=== PATIENT | female | born 1995 | race Caucasian/White ===

== ENCOUNTER 2020-09-02 13:13 | Inpatient (IN) ==
[2020-09-02] MEDS ORDERED: ceFAZolin 3,000 MG in SYRINGE 1 EACH IV ONE (13:22)
[2020-09-02] MEDS ORDERED: FAMOTIDINE 20 MG/2 ML VIAL IV ONE (13:22)
[2020-09-02] MEDS ORDERED: CITRIC ACID/SODIUM CITRATE 30 ML UDCUP PO ONE (13:22)
[2020-09-02] MEDS ORDERED: LACTATED RINGERS 1,000 ML IV SCH ×2 (13:30→18:00)
[2020-09-02 13:48] LABS: Basophils # 0.1 10*3/uL (0.0-0.2); Basophils % 0.7 % (0.0-0.8); Eosinophils # 0.1 10*3/uL (0.0-0.87); Eosinophils % 0.6 % (0.00-10.9); Hematocrit 38.6 VOL% (35.7-47.0); Immature Granulocytes % 0.4 %; Immature Granulocytes Absolute 0.05 #; Lymphocytes # 2.6 10*3/uL (1.4-4.0); Lymphocytes % 21.5 % (21.3-54.2); Mean Corpuscular HGB Conc 33.7 GM/DL (32-36); Mean Corpuscular Volume 83.7 FL (87-102); Mean Platelet Volume 10.2 FL (9.6-12.0); Neutrophils % 71.8 % (38.7-73.9); Platelet Count 317 T/CUMM (130-400); Red Blood Count 4.61 MC/CUMM (3.8-5.5); Red Cell Distribution Width 12.9 % (9.3-17.3); White Blood Count 12.2 T/CUMM (4-12)
[2020-09-02] MEDS ORDERED: NIFEdipine 10 MG CAPSULE PO ONE ×2 (14:03→20:17)
[2020-09-02 14:08] LABS: Alanine Aminotransferase 91 U/L (13-56); Alkaline Phosphatase 288 U/L (45-117); Aspartate Amino Transferase 54 U/L (0-37); Bilirubin,Total < 0.39 MG/DL (0.2-1.0); Blood Urea Nitrogen 13 MG/DL (7-18); Calcium 9.3 MG/DL (8.5-10.1); Carbon Dioxide 22 MMOL/L (21-32); Estimated Glom Filtration Rate 113 ML/MIN; Glucose 125 MG/DL (74-106); Osmolality,Calculated 262.7 MOS/KG (273-304); Potassium 4.1 MMOL/L (3.5-5.1); Sodium 131 MMOL/L (136-145); Total Protein 7.4 G/DL (5.0-7.5)
[2020-09-02] MEDS ORDERED: METOCLOPRAMIDE 10 MG/2 ML VIAL IV ONE (14:51)
[2020-09-02] MEDS ORDERED: MORPHINE 10 MG/10 ML VIAL ONE (14:59)
[2020-09-02] MEDS ORDERED: TRANEXAMIC ACID 1,000 MG/10 ML VIAL ONE (15:00)
[2020-09-02] MEDS ORDERED: miSOPROStoL 200 MCG TABLET ONE (15:00)
[2020-09-02] MEDS ORDERED: METHYLERGONOVINE 0.2 MG/1 ML AMP ONE (15:00)
[2020-09-02] MEDS ORDERED: CARBOPROST TROMETHAMINE 250 MCG/ML AMP IM ONE (15:00)
[2020-09-02] MEDS ORDERED: OXYTOCIN 10 UNIT/ML VIAL IM ONE (15:06)
[2020-09-02] MEDS ORDERED: OXYTOCIN/LR 30 UNIT/1,000 ML BAG IV ONE (15:06)
[2020-09-02] MEDS ORDERED: ALBUMIN 5% 12.5 GM/250 ML VIAL IV ONE (15:28)
[2020-09-02] MEDS ORDERED: BUPIVACAINE SPINAL 0.75% 2 ML AMP SPINAL ONE (15:57)
[2020-09-02] MEDS ORDERED: MIDAZOLAM 2 MG/2 ML VIAL ONE (15:57)
[2020-09-02] MEDS ORDERED: ONDANSETRON 4 MG/2 ML VIAL ONE (16:18)
[2020-09-02] MEDS ORDERED: KETOROLAC 30 MG/1 ML VIAL ONE (16:36)
[2020-09-02] MEDS ORDERED: FUROSEMIDE 20 MG/2 ML VIAL ONE (16:40)
[2020-09-02 16:46] LABS: Cord Arterial Blood HCO3 19.6 MMOL/L
[2020-09-02 16:49] LABS: Cord Venous Blood PCO2 58.6 MMHG; Cord Venous Blood PO2 24.9
[2020-09-02] MEDS ORDERED: FUROSEMIDE 20 MG/2 ML VIAL IV ONE (17:13)
[2020-09-02] MEDS ORDERED: FUROSEMIDE 40 MG/4 ML VIAL ONE (17:27)
[2020-09-02] MEDS ORDERED: SIMETHICONE CHEW 80 MG TABLET PO PRN (17:35)
[2020-09-02] MEDS ORDERED: DEXTROSE 50% 25 GM/50 ML VIAL IV PRN (17:35)
[2020-09-02] MEDS ORDERED: GLUCAGON 1 MG VIAL IM PRN (17:35)
[2020-09-02] MEDS ORDERED: ACETAMINOPHEN 325 MG TABLET PO PRN (17:35)
[2020-09-02] MEDS ORDERED: ONDANSETRON 4 MG/2 ML VIAL IV PRN (17:35)
[2020-09-02] MEDS ORDERED: OXYTOCIN/LR 20 UNIT/1,000 ML BAG IV ONE (17:35)
[2020-09-02] MEDS ORDERED: RHO(D) IMMUNE GLOBULIN 300 MCG SYRINGE IM ONE (17:35)
[2020-09-02 18:13] LABS: Bilirubin,Urine Negative (Negative); Blood, Urine Negative (Negative); Glucose,Urine (UA) Negative (Negative); Ketones,Urine Negative (Negative); Nitrite,Urine Negative (Negative); Protein,Urine Negative; RBC,Urine 1 /HPF (0-4); Urine Appearance CLEAR (Clear); Urine Color Straw (Yellow); Urine Specific Gravity 1.005 (1.001-1.035); Urine Urobilinogen < 2.0 EU/DL (0.2-1.0)
[2020-09-02] MEDS ORDERED: diphenhydrAMINE CAP 25 MG CAPSULE PO PRN (18:55)
[2020-09-02] MEDS: diphenhydrAMINE 50 MG/1 ML VIAL IV PRN (19:14)
[2020-09-02] MEDS ORDERED: MEPERIDINE 50 MG/1 ML VIAL IV PRN (20:57)
[2020-09-03] MEDS: diphenhydrAMINE 50 MG/1 ML VIAL IV PRN ×2 (00:03→08:14)
[2020-09-03] MEDS: FUROSEMIDE 40 MG/4 ML VIAL IV SCH ×3 (00:19→08:15)
[2020-09-03] MEDS: ceFAZolin 1,000 MG in SYRINGE 1 EACH IV SCH ×2 (00:19→08:13)
[2020-09-03] MEDS: DOCUSATE SODIUM 100 MG CAPSULE PO SCH ×3 (00:20→20:38)
[2020-09-03] MEDS: NIFEdipine 10 MG CAPSULE PO SCH ×4 (00:32→18:03)
[2020-09-03] MEDS: IBUPROFEN 800 MG TABLET PO PRN ×2 (02:54→08:14)
[2020-09-03] MEDS: MULTIVITAMIN (PRENATAL) TABLET PO SCH (08:15)
[2020-09-03 08:29] LABS: Basophils # 0.1 10*3/uL (0.0-0.2); Basophils % 0.5 % (0.0-0.8); Eosinophils # 0.1 10*3/uL (0.0-0.87); Eosinophils % 0.5 % (0.00-10.9); Hematocrit 33.2 VOL% (35.7-47.0); Hemoglobin 11.2 GM/DL (12.0-16.0); Immature Granulocytes % 0.5 %; Immature Granulocytes Absolute 0.07 #; Lymphocytes # 3.4 10*3/uL (1.4-4.0); Lymphocytes % 22.8 % (21.3-54.2); Mean Corpuscular HGB Conc 33.7 GM/DL (32-36); Mean Corpuscular Volume 85.6 FL (87-102); Mean Platelet Volume 10.4 FL (9.6-12.0); Monocytes % 7.8 % (1.7-12.7); Neutrophils % 67.9 % (38.7-73.9); Platelet Count 292 T/CUMM (130-400); Red Blood Count 3.88 MC/CUMM (3.8-5.5); Red Cell Distribution Width 13.2 % (9.3-17.3); White Blood Count 15.1 T/CUMM (4-12)
[2020-09-03] MEDS: LABETALOL 200 MG TABLET PO SCH ×2 (14:32→20:38)
[2020-09-03] MEDS ORDERED: LABETALOL 20 MG/4 ML SYRINGE IV ONE (19:09)
[2020-09-04] MEDS: NIFEdipine 10 MG CAPSULE PO SCH ×4 (03:27→18:13)
[2020-09-04] MEDS: DOCUSATE SODIUM 100 MG CAPSULE PO SCH ×2 (08:34→22:24)
[2020-09-04] MEDS: LABETALOL 200 MG TABLET PO SCH ×2 (08:34→22:24)
[2020-09-04] MEDS: MULTIVITAMIN (PRENATAL) TABLET PO SCH (08:35)
[2020-09-04] MEDS: IBUPROFEN 800 MG TABLET PO PRN (14:59)
[2020-09-04] MEDS ORDERED: IBUPROFEN 800 MG TABLET PO PRN (18:29)
[2020-09-04] MEDS: MAGNESIUM HYDROXIDE SUSP 30 ML UDCUP PO PRN (22:24)
[2020-09-05] MEDS: NIFEdipine 10 MG CAPSULE PO SCH ×3 (00:28→12:05)
[2020-09-05] MEDS: MULTIVITAMIN (PRENATAL) TABLET PO SCH (08:51)
[2020-09-05] MEDS: DOCUSATE SODIUM 100 MG CAPSULE PO SCH (08:51)
[2020-09-05] MEDS: LABETALOL 200 MG TABLET PO SCH (08:51)
[2020-09-05] MEDS: MAGNESIUM HYDROXIDE SUSP 30 ML UDCUP PO PRN (09:18)
[2020-09-05] MEDS ORDERED: FUROSEMIDE 20 MG TABLET PO ONE (11:35)
[2020-09-05 12:23] VITALS: BP 146/82
[2020-09-05] MEDS ORDERED: DIPH/TET/ACEL PERT BOOSTER VACCINE 0.5 ML VIAL IM ONE (12:58)
== END 2020-09-05 14:55 | disposition home or self-care (01) | DRG 540 ==
LOC: N.LD 13:13 → N.OB 09-04 11:00
PROVIDERS: ADMIT Obstetrics & Gynecology; ATTEND Obstetrics & Gynecology
PROC: LDCSECT (ICD-10-PCS; 2020-09-02 15:32)